=== PATIENT | male | born 1940 | race Asian ===

== ENCOUNTER 2016-10-27 08:19 | Inpatient (IN) | payer OTHER ==
[~2016-10-27] VITALS: Ht 165.1 cm; Wt 46.7 kg
[~2016-10-27 08:19] MED LIST: ANTIVERT25 MG PO; ASPIRIN81 M1 PO; LEVAQUIN500 MG PO
[2016-10-27 08:22] VITALS: BP 136/59
--- NOTE | 2016-10-27 08:33 | NUR ---
Patient ambulated to bed 7. Addendum: 10/27/16 at 0841 by MEDIVETT Patient ambulated to bed 8.
--- NOTE | 2016-10-27 08:35 | NUR ---
76/M BIB FAMILY C/O RECTAL BLEED x 3 DAYS. PT STATES HE STARTED NOTICING BRIGHT RED BLOOD ON HIS RECTUM. PT DENIES PAIN OR DISCOMFORT 0/10. AAOx4, PERRLA, BREATHING EVEN AND UNLABORED. PT STATES HE HAS Hx: HTN. BED RAILS UP; BED ON LOWEST POSITION. PATIENT POSITIONED FOR COMFORT. ERMD NOTIFIED OF PATIENT STATUS.
--- NOTE | 2016-10-27 08:36 | NUR ---
Patient being evaluated by physician at bedside.
[2016-10-27] MEDS ORDERED: PREVACID15 MG PO (08:40)
[2016-10-27] MEDS ORDERED: NORVASC5 MG PO (08:40)
[2016-10-27] MEDS ORDERED: LOPRESSOR25 MG PO (08:40)
[2016-10-27] MEDS ORDERED: LOTENSIN20 MG PO (08:40)
[2016-10-27] MEDS ORDERED: ORETIC25 MG PO (08:40)
[2016-10-27] MEDS ORDERED: NACL 0.9% 500 ML IV ONE (08:50)
--- NOTE | 2016-10-27 09:35 | NUR ---
PT RESTING; PATIENT STATES PAIN OF 0/10 AT THIS TIME; VSS; PATIENT POSITIONED FOR COMFORT; HOB ELEVATED; BEDRAILS UP X2; BED DOWN. ER MD MADE AWARE OF PT STATUS.
--- NOTE | 2016-10-27 09:35 | NUR ---
Note naina in EDM - 10/27/16 at 0936 by JETT PT RESTING. PT RESTING; PATIENT STATES PAIN OF 0/10 AT THIS TIME; VSS; PATIENT POSITIONED FOR COMFORT; HOB ELEVATED; BEDRAILS UP X2; BED DOWN. ER MADE AWARE OF PT STATUS.
--- NOTE | 2016-10-27 10:20 | NUR ---
PT TAKEN TO CT BY RADIOLGY TECH VIA WHEELCAIR.
--- NOTE | 2016-10-27 10:38 | NUR ---
PT RETURNED FROM RADIOLOGY VIA WHEELCHAIR WITH METAL NUMERICAL TOOL PROGRAMMER.
--- NOTE | 2016-10-27 11:07 | NUR ---
PT RESTING. VSS; PATIENT POSITIONED FOR COMFORT; HOB ELEVATED; BEDRAILS UP X2; BED DOWN. ER MD MADE AWARE OF PT STATUS.
--- NOTE | 2016-10-27 12:05 | NUR ---
PT RESTING. VSS; PATIENT POSITIONED FOR COMFORT; HOB ELEVATED; BEDRAILS UP X2; BED DOWN. ER MD MADE AWARE OF PT STATUS.
--- NOTE | 2016-10-27 12:31 | NUR ---
CALLED REPORT TO MED SURG/ TELE . BED ASSIGNMENT BEING CHANGED. CALL BACK IN 5 MINUTES.
--- NOTE | 2016-10-27 12:38 | NUR ---
Patient will be admitted to care of DR YANEZ. Admited to TELE. Will go to room 122A. Belongings list completed. Report to JERRY VERDE.
[2016-10-27] MEDS ORDERED: ALBUTEROL 0.083% 2.5 MG/3 ML NEBU IH PRN (13:05)
[2016-10-27] MEDS ORDERED: LORazepam 2 MG/ML VIAL IVP PRN (13:05)
[2016-10-27] MEDS ORDERED: MORPHINE SULFATE 2 MG/ML SYR IVP PRN (13:05)
[2016-10-27] MEDS ORDERED: HYDROcodone/APAP 5/325 MG 1 TAB TAB PO PRN (13:05)
[2016-10-27] MEDS ORDERED: ONDANSETRON 4 MG/2 ML VIAL IVP PRN (13:05)
[2016-10-27 13:07] VITALS: BP 157/83
--- NOTE | 2016-10-27 13:07 | NUR ---
ALERT AND ORIENTED X4, NO SIGNS OF ACUTE DISTRESS, BREATHING EVENLY AND UNLABORED ON ROOM AIR, SKIN WARM, DRY AND INTACT, ABDOMEN SOFT BOWEL SOUNDS PRESENT IN ALL 4 QUADRANTS, BOWEL AND BLADDER CONTINENCE, AMBULATORY, NO COMPLAINTS OF PAIN, IV PATENT WITH NO REDNESS, BED IN LOW POSITION WITH BILATERAL HALF SIDE RAILS UP, CALL LIGHT WITHIN REACH.
--- NOTE | 2016-10-27 13:10 | NUR ---
RECEIVED ORDER FROM DR VALLEJO TO CHANGE DIET TO CLEAR LIQUID, PUT NEW DIET IN EFFECT.
--- NOTE | 2016-10-27 13:20 | NUR ---
RECEIVED ORDER FOR SCD'S FOR VTE PROPHYLAXIS, ORDERED SCD'S.
[2016-10-27] MEDS ORDERED: PNEUMOCOCCAL VACCINE 23 MCG/0.5 ML VIAL IMVAC SCH (15:05)
[2016-10-27] MEDS: NACL 0.9% 1,000 ML IV SCH (15:28)
[2016-10-27 16:00] VITALS: BP 132/72
--- NOTE | 2016-10-27 16:05 | NUR ---
RECEIVED ORDER FROM DR ROSALES TO OBTAIN CONSENT FOR COLONOSCOPY, WILL OBTAIN CONSENT.
--- NOTE | 2016-10-27 16:30 | NUR ---
CONSENT OBTAINED FOR COLONOSCOPY.
[2016-10-27] MEDS ORDERED: SENNA 8.6 MG TAB PO SCH ×2 (16:45→21:00)
[2016-10-27] MEDS ORDERED: LACTULOSE 20 GM/30 ML UDC PO SCH (17:00)
--- NOTE | 2016-10-27 19:21 | NUR ---
ALERT AND ORIENTED X4, NO SIGNS OF ACUTE DISTRESS, BREATHING EVENLY AND UNLABORED ON ROOM AIR, SKIN WARM, DRY AND INTACT, ABDOMEN SOFT BOWEL SOUNDS PRESENT IN ALL 4 QUADRANTS, BOWEL AND BLADDER CONTINENCE, AMBULATORY, NO COMPLAINTS OF PAIN, IV PATENT WITH NO REDNESS, BED IN LOW POSITION WITH BILATERAL HALF SIDE RAILS UP, CALL LIGHT WITHIN REACH. GAVE REPORT TO ASSIGNED MANAGER ENGINE NURSERONNIE.
--- NOTE | 2016-10-27 19:25 | NUR ---
RECEIVED REPORT FROM MORNING SHIFT NURSE AT BEDSIDE, PT IS AAOX4. DENIES PAIN, NO SOB/DISTRESS NOTED, BREATHING EVEN AND UNLABORED, CLEAR LUNG SOUNDS, ON RA. DENIES ANY CHEST PAIN, ON TELE MONITOR WITH SR. SOFT ABD WITH POSITIVE BOWEL SOUNDS TO 4 QUADRANTS. AFEBRILE, SKIN INTACT, WARM AND DRY IN TOUCH. IV SITE TO LEFT AC 20GA RUNNING WITH NS. ABLE TO MOVE ALL EXTREMITIES, ABLE AMBULATORY WITH STEADY GAIT. CONTINENT WITH B&B'S. VSS. EXPLAINED PLAN OF CARE TO PATIENT, SAFETY MEASURES MAINTAINED, CALL LIGHT WITHIN REACH, WILL CONTINUE TO MONITOR.
[2016-10-27 20:00] VITALS: BP 138/72
[2016-10-27] MEDS ORDERED: MAGNESIUM CITRATE 300 ML BTL PO SCH (20:00)
--- NOTE | 2016-10-27 20:30 | NUR ---
SCHEDULED MEDICATION GIVEN, PT TOLERATED WELL.
[2016-10-28] VITALS: BP 142/72
--- NOTE | 2016-10-28 | NUR ---
NO CHANGE OF CONDITION AT THIS TIME, PT HAD BOWEL MOVEMENT SEVERAL TIMES, SMALL AMOUNT OF BLOOD NOTED. VSS.
[2016-10-28] MEDS: NACL 0.9% 1,000 ML IV SCH (03:30)
[2016-10-28 04:00] VITALS: BP 134/73
--- NOTE | 2016-10-28 04:00 | NUR ---
NO CHANGE OF CONDITION AT THIS TIME, VSS.
[2016-10-28] MEDS ORDERED: BOWEL EVACUANT DRINK 4,000 ML PDS PO SCH (06:00)
--- NOTE | 2016-10-28 07:10 | NUR ---
REPORT GIVEN TO MORNING SHIFT NURSE FOR CONTINUE OF CARE, PT IS IN STABLE CONDITION AT THIS TIME.
--- NOTE | 2016-10-28 07:11 | NUR ---
ALERT AND ORIENTED X4, NO SIGNS OF ACUTE DISTRESS, BREATHING EVEN AND UNLABORED BILATERALLY, ABDOMEN SOFT WITH BOWEL SOUNDS PRESENT IN ALL 4 QUADRANTS, SKIN WARM, DRY AND INTACT, BOWEL AND BLADDER CONTINENCE, AMBULATES INDEPENDENTLY, NO COMPLAINTS OF PAIN, BED IN LOW POSITION WITH BILATERAL HALF SIDE RAILS UP, CALL LIGHT WITHIN REACH.
[2016-10-28 07:57] VITALS: BP 140/78
--- NOTE | 2016-10-28 08:01 | NUR ---
PATIENT HAS BEEN SCREENED AND CATEGORIZED HIGH NUTRITION RISK. PATIENT WILL BE SEEN WITHIN 1-2 DAYS OF ADMISSION. 10/28/16-10/29/[address]
[2016-10-28] MEDS ORDERED: amLODIPine 5 MG TAB PO SCH (09:00)
[2016-10-28] MEDS ORDERED: BENAZEPRIL 10 MG TAB PO SCH (09:00)
[2016-10-28] MEDS ORDERED: METOPROLOL SUCCINATE 50 MG TABER PO SCH (09:00)
--- NOTE | 2016-10-28 09:43 | NUR ---
WAS SEEN BY DR VALLEJO, ORDERED LABS AND CLARIFIED PT ORDERS.
--- NOTE | 2016-10-28 09:50 | NUR ---
PER MD YANEZ D/C PT, PATIENT INDEPENDENT WITH ADL'S.
[2016-10-28 12:00] VITALS: BP 126/72
--- NOTE | 2016-10-28 12:00 | NUR ---
PT AWAKE ALERT AND ORIENTED, NO SIGNS OF ACUTE DISTRESS. WENT OFF UNIT TO OR FOR COLONOSCOPY. PRE OP CHECKLIST DONE AND VERIFIED.
[2016-10-28] MEDS: MIDAZOLAM 2 MG/2 ML VIAL ONE ×2 (12:15→12:19)
[2016-10-28] MEDS: fentaNYL 0.05 MG/ML VIAL ONE ×2 (12:16→12:19)
[2016-10-28] MEDS ORDERED: diphenhydrAMINE 50 MG/ML VIAL ONE (12:19)
[2016-10-28 12:55] VITALS: BP 114/68
--- NOTE | 2016-10-28 12:55 | NUR ---
PATIENT BACK FROM OR, RECEIVED REPORT FROM MANDY RN, PT. AWAKE, ALERT AND ORIENTED X4 S/P COLONOSCOPY, NO SIGNS OF ACUTE DISTRESS, NO EPISODES OF NAUSEA OR VOMITING. PER REPORT, PATIENT HAD RECTAL POLYP REMOVED AND TOLERATED PROCEDURE WELL.
--- NOTE | 2016-10-28 13:37 | NUR ---
RECEIVED CALL FROM SELIN FROM [facility]. SAID TO FAX REVIEW TO HIM. FAXED INITIAL REVIEW TO [phone] PHONE SELIN [phone] OR DENISA Emerson [phone]
--- NOTE | 2016-10-28 14:26 | NUR ---
RECEIVED NEW ORDER FROM DR ROSALES AND RENATA, OK TO D/C HOME TODAY, WILL CARRY OUT.
--- NOTE | 2016-10-28 14:55 | NUR ---
10/28/16 RD INITIAL ASSESSMENT COMPLETED PLEASE REFER TO NUTRITION ASSESSMENT UNDER CARE ACTIVITY FOR ESTIMATED NUTRITIONAL NEEDS. RD RECOMMENDATIONS: WHEN MEDICALLY APPROPRIATE CONSIDER ADVANCING DIET TO REGULAR TOLERATED. ENCOURAGE INCREASED PO INTAKE. RD WILL F/U 3-5 DAYS; MODERATE RISK. KIKO KAPOOR, DEMETRIUS
--- NOTE | 2016-10-28 15:19 | NUR ---
PT. AWAKE, ALERT AND ORIENTED X4, NO SIGNS OF ACUTE DISTRESS, DISCONTINUED IV AND TELE MONITOR. INFORMED TO CONTINUE ALL HOME MEDICATIONS AND TO FOLLOW UP WITH PCP WITHIN 1 TO 2 WEEKS ADVISED PER MD, PATIENT VERBALIZED UNDERSTANDING. NO COMPLAINT OF PAIN OR NAUSEA. PATIENT TO LEAVE WITH FAMILY VIA PRIVATE AUTO. WHEELED PATIENT TO FRONT OF HOSPITAL.
== END 2016-10-28 15:19 | disposition home or self-care (01) | DRG 394 ==
LOC: MED 08:19 → MTU 12:18
PROVIDERS: ADMIT Hospitalist; ATTEND Hospitalist
PROC: 0DBP8ZZ Excision of Rectum, Via Natural or Artificial Opening Endoscopic (ICD-10-PCS; principal; 2016-10-28 12:00)
DX: K62.1 Rectal polyp (principal); R64 Cachexia; Z68.1 Body mass index [BMI] 19.9 or less, adult; I10 Essential (primary) hypertension; K59.00 Constipation, unspecified; Z79.82 Long term (current) use of aspirin; Z79.899 Other long term (current) drug therapy; Z86.73 Personal history of transient ischemic attack (TIA), and cerebral infarction without residual deficits

== ENCOUNTER 2017-01-24 11:17 | Emergency (ER) | payer OTHER ==
[~2017-01-24] VITALS: Ht 163.8 cm; Wt 48.3 kg
[~2017-01-24 11:17] MED LIST changes: +AMLO5TAB PO; -ANTIVERT25 MG PO; +ASPI81CT89 PO; -ASPIRIN81 M1 PO; +BENA20TA PO; +LANS15EC28 PO; -LEVAQUIN500 MG PO; +METO25TA PO; +ORE25 PO
[2017-01-24 11:53] VITALS: BP 111/64
[2017-01-24] MEDS ORDERED: NACL 0.9% 1,000 ML IV SCH (12:16)
[2017-01-24] MEDS ORDERED: ONDANSETRON 4 MG/2 ML VIAL IVP ONE (12:20)
[2017-01-24 12:38] LABS: BASOPHILS # (AUTO) 0.1 K/uL (0.00-0.22); BASOPHILS % (AUTO) 1.6 % (0.0-2.0); EOSINOPHILS # (AUTO) 0.1 K/uL (0-0.4); EOSINOPHILS % (AUTO) 1.2 % (0.0-4.0); HEMATOCRIT 40.5 % (36-52); HEMOGLOBIN 13.4 g/dL (12.0-18.0); LYMPHOCYTES # (AUTO) 0.9 K/uL (2.0-11.5); LYMPHOCYTES % (AUTO) 13.3 % (20.5-51.1); MEAN CORPUSCULAR HEMOGLOBIN 31 pg (27-31); MEAN CORPUSCULAR HGB CONC 33 g/dL (33-37); MEAN CORPUSCULAR VOLUME 93 fL (80-94); MONOCYTES # (AUTO) 0.3 K/uL (0.8-1.0); MONOCYTES % (AUTO) 4.7 % (1.7-9.3); NEUTROPHILS # (AUTO) 5.7 K/uL (1.8-7.7); NEUTROPHILS % (AUTO) 79.2 % (42.2-75.2); PLATELET COUNT (AUTO) 288 K/uL (140-450); RED BLOOD CELL COUNT(AUTO) 4.35 MIL/uL (4.20-6.10); RED CELL DISTRIBUTION WIDTH 13.3 % (11.6-13.7); WHITE BLOOD COUNT (AUTO) 7.1 K/uL (4.8-10.8)
[2017-01-24 12:56] LABS: ANION GAP 12.3 (8-16); CALCIUM 8.4 mg/dL (8.5-10.1); CARBON DIOXIDE 25.7 mmol/L (21-32); CHLORIDE 103 mmol/L (98-107); CREATININE 1.3 mg/dL (0.7-1.3); GLUCOSE 137 mg/dL (74-106); SODIUM SERUM 137 mmol/L (136-145); UREA NITROGEN, BLOOD 26 mg/dL (7-18)
[2017-01-24 12:58] LABS: PARTIAL THROMBOPLASTIN TIME 25.9 secs (22-35.6); PROTHROMBIN TIME 10.4 secs (10.8-13.4)
[2017-01-24 13:02] LABS: ALANINE AMINOTRANSFERASE 21 U/L (16-63); ALBUMIN 3.8 g/dL (3.4-5.0); ALKALINE PHOSPHATASE 100 U/L (46-116); AMYLASE 89 U/L (25-115); ASPARTATE AMINOTRANSFERASE 27 U/L (15-37); LIPASE 146 U/L (73-393); TOTAL BILIRUBIN 0.6 mg/dL (0.0-1.0); TOTAL PROTEIN, SERUM 8.5 g/dL (6.4-8.2)
--- NOTE | 2017-01-24 13:57 | NUR ---
Patient returned to ED lobby after completion of XRAY.
--- NOTE | 2017-01-24 14:56 | NUR ---
Patient ambulated to bed 4 with family. RN evaluating patient at bedside.
--- NOTE | 2017-01-24 14:58 | NUR ---
76M BIB FAMILY C/O HEADACHE WITH NAUSEA X 3 DAYS, WORSENED THIS MORNING; PT STATES " I WENT TO THE BATHROOM THIS MORNING AND FELT DIZZY WITH NAUSEA";PT DENIES TRAUMA OR INJURY TO HEAD AT THIS TIME. HX: HTN, HYPERLIPIDEMIA. SKIN IS PINK/WARM/DRY; AAOX4 WITH EVEN AND STEADY GAIT; LUNGS CLEAR BL; HR EVEN AND REGULAR; PT DENIES ANY FEVER, CP, SOB, OR COUGH AT THIS TIME; PATIENT STATES PAIN OF 5/10 AT THIS TIME; VSS; PATIENT POSITIONED FOR COMFORT; HOB ELEVATED; BEDRAILS UP X2; BED DOWN. ER MD MADE AWARE OF PT STATUS.
--- NOTE | 2017-01-24 15:03 | NUR ---
INSERTED IV CATH NO20 G LAC BY JERRY MASON. PT TOLERATED PROCEDURE WELL, IV PATENT/INTACT. Addendum: 01/24/17 at 1654 by MED1 FAMILY AT BEDSIDE.
[2017-01-24] MEDS ORDERED: ONDANSETRON 4 MG/2 ML VIAL ONE (15:15)
--- NOTE | 2017-01-24 15:37 | NUR ---
PT TAKEN TO X RAY.
--- NOTE | 2017-01-24 15:45 | NUR ---
BACK FROM X RAY
[2017-01-24 16:03] LABS: APPEARANCE,URINE CLEAR (CLEAR); BILIRUBIN,URINE NEGATIVE (NEGATIVE); BLOOD, URINE TRACE-I (NEGATIVE); COLOR,URINE YELLOW (YELLOW); LEUKOCYTE ESTERASE ,URINE NEGATIVE (NEGATIVE); NITRITE, URINE NEGATIVE (NEGATIVE); PH,URINE 6.5 (5.0-9.0); PROTEIN,URINE NEGATIVE (NEGATIVE); UGLUCOSE NEGATIVE (NEGATIVE); UROBILINOGEN,URINE 0.2 EU/dL (0.2 - 1)
[2017-01-24 16:04] LABS: AMYLASE 89 U/L (25-115); LIPASE 147 U/L (73-393)
--- NOTE | 2017-01-24 16:05 | NUR ---
EKG AT BEDSIDE
[2017-01-24 16:14] LABS: BACTERIA,URINE RARE /HPF (None Seen); MUCUS,URINE 1+ /LPF (None Seen); SQUAMOUS EPITHELIAL CELL,UR 0-3 /LPF (0-3 (FEW)); WBC,URINE 0-3 /HPF (0-5)
--- NOTE | 2017-01-24 16:41 | NUR ---
Patient appears to be resting comfortably in bed. Vital Signs within normal limits. Respirations even and unlabored.WILL CONTINUE TO MONITOR.
--- NOTE | 2017-01-24 16:54 | NUR ---
ER MD DR HERNANDEZ REEVALUATING PT AT BEDSIDE.
[2017-01-24 17:22] VITALS: BP 137/64
--- NOTE | 2017-01-24 17:22 | NUR ---
Patient discharged with BP137/64 ; HEADACHE 09/19; MD AWARE . Written and verbal after care instructions given and explained. Patient alert, oriented and verbalized understanding of instructions. Ambulatory with steady gait. All questions addressed prior to discharge. ID band removed. Patient advised to follow up with PMD. Rx of TYLENOL & ANTIVERT given. Patient educated on indication of medication including possible reaction and side effects. Opportunity to ask questions provided and answered.
== END 2017-01-24 17:22 | disposition home or self-care (01) ==
LOC: MED 11:17
DX: G44.209 Tension-type headache, unspecified, not intractable (principal); J45.909 Unspecified asthma, uncomplicated; I10 Essential (primary) hypertension; Z86.73 Personal history of transient ischemic attack (TIA), and cerebral infarction without residual deficits
CPT/HCPCS: 36415; 70450; 71010; 80053; 81001; 82150; 82553; 83690; 83880; 84484; 84703; 85025; 85610; 85730; 93005; 96361; 96374; 99285; J2405; J7030

== ENCOUNTER 2017-10-23 07:53 | Emergency (ER) | payer OTHER ==
[~2017-10-23] VITALS: Ht 157.5 cm; Wt 51.4 kg
[2017-10-23 07:58] VITALS: BP 156/76
--- NOTE | 2017-10-23 08:44 | NUR ---
PATIENT PRESENTS TO ED WITH RIGHT ANTERIOR FOOT SWELLING/REDNESS X 2 DAYS--DENIES INJURY DENIES N/V/D; SKIN IS PINK/WARM/DRY; AAOX4 WITH EVEN AND STEADY GAIT; LUNGS CLEAR BL; HR EVEN AND REGULAR; PT DENIES ANY FEVER, CP, SOB, OR COUGH AT THIS TIME; PATIENT STATES PAIN OF 6/10 AT THIS TIME; VSS; PATIENT POSITIONED FOR COMFORT; HOB ELEVATED; BEDRAILS UP X2; BED DOWN. ER MD MADE AWARE OF PT STATUS.
[2017-10-23 09:06] VITALS: BP 177/75
--- NOTE | 2017-10-23 09:06 | NUR ---
Patient discharged with v/s stable. Written and verbal after care instructions given and explained. Patient alert, oriented and verbalized understanding of instructions. Ambulatory with steady gait. All questions addressed prior to discharge. ID band removed. Patient advised to follow up with PMD. Rx of Keflex, Bactrim, and Motrin given. Patient educated on indication of medication including possible reaction and side effects. Opportunity to ask questions provided and answered.
== END 2017-10-23 09:06 | disposition home or self-care (01) ==
LOC: MED 07:53
DX: L03.115 Cellulitis of right lower limb (principal); J45.909 Unspecified asthma, uncomplicated; I10 Essential (primary) hypertension; Z86.73 Personal history of transient ischemic attack (TIA), and cerebral infarction without residual deficits
CPT/HCPCS: 81002; 99283

== ENCOUNTER 2018-09-01 23:30 | Emergency (ER) | payer OTHER ==
[~2018-09-01] VITALS: Ht 165.1 cm; Wt 62.1 kg
[~2018-09-01 23:30] MED LIST changes: +ASPI-1718 PO; -ASPI81CT89 PO
--- NOTE | 2018-09-01 23:30 | NUR ---
Pt transfered from [facility] to bed 11 with vss.
[2018-09-01 23:40] VITALS: BP 117/72
--- NOTE | 2018-09-01 23:52 | NUR ---
PATIENT PRESENTS TO ED WITH possible mechanical fall. family states that pt was more tired than usual. DENIES N/V/D; SKIN IS PINK/WARM/DRY; AAOX4 WITH EVEN AND STEADY GAIT; LUNGS CLEAR BL; HR EVEN AND REGULAR; PT DENIES ANY FEVER, CP, SOB, OR COUGH AT THIS TIME; PATIENT STATES PAIN OF 0/10 AT THIS TIME; VSS; PATIENT POSITIONED FOR COMFORT; HOB ELEVATED; BEDRAILS UP X2; BED DOWN. ER MD MADE AWARE OF PT STATUS.
[2018-09-01] MEDS ORDERED: TAMS0.4C96 PO (23:57)
[2018-09-02] MEDS ORDERED: DOCU-299 PO
[2018-09-02] MEDS ORDERED: MECL-272 PO
[2018-09-02] MEDS ORDERED: BENA20TA PO (00:01)
--- NOTE | 2018-09-02 00:01 | NUR ---
EKG PERFORMED AT BEDSIDE WITH RN PRESENT. PT COVERED IN GOWN AND BLANKET DURING PROCEDURE.
[2018-09-02] MEDS ORDERED: ASPI-1677 PO (00:02)
[2018-09-02] MEDS ORDERED: ISOS10TA9 PO (00:02)
[2018-09-02 00:09] LABS: BASOPHILS % (AUTO) 0.3 % (0.0-2.0); EOSINOPHILS # (AUTO) 0.3 K/uL (0-0.4); EOSINOPHILS % (AUTO) 3.7 % (0.0-4.0); HEMATOCRIT 35.4 % (36-52); HEMOGLOBIN 11.6 g/dL (12.0-18.0); LYMPHOCYTES # (AUTO) 1.6 K/uL (2.0-11.5); LYMPHOCYTES % (AUTO) 21.7 % (20.5-51.1); MEAN CORPUSCULAR HEMOGLOBIN 31 pg (27-31); MEAN CORPUSCULAR HGB CONC 33 g/dL (33-37); MEAN CORPUSCULAR VOLUME 93.7 fL (80-94); MONOCYTES # (AUTO) 0.6 K/uL (0.8-1.0); NEUTROPHILS # (AUTO) 4.8 K/uL (1.8-7.7); NEUTROPHILS % (AUTO) 66.3 % (42.2-75.2); PLATELET COUNT (AUTO) 327 K/uL (140-450); RED BLOOD CELL COUNT(AUTO) 3.78 MIL/uL (4.20-6.10); RED CELL DISTRIBUTION WIDTH 13.1 % (11.6-13.7); WHITE BLOOD COUNT (AUTO) 7.3 K/uL (4.8-10.8)
[2018-09-02 00:20] LABS: ANION GAP 11.6 (8-16); CARBON DIOXIDE 27.7 mmol/L (21-32); CHLORIDE 107 mmol/L (98-107); CREATININE 1.3 mg/dL (0.7-1.3); GLUCOSE 125 mg/dL (74-106); POTASSIUM 3.3 mmol/L (3.5-5.1); SODIUM SERUM 143 mmol/L (136-145); UREA NITROGEN, BLOOD 24 mg/dL (7-18)
[2018-09-02 00:27] LABS: ALBUMIN 3.3 g/dL (3.4-5.0); ASPARTATE AMINOTRANSFERASE 26 U/L (15-37); LIPASE 278 U/L (73-393); TOTAL BILIRUBIN 0.3 mg/dL (0.0-1.0)
[2018-09-02 00:33] LABS: CREATINE KINASE MB 2.5 ng/mL (0-3.6)
[2018-09-02 01:15] LABS: APPEARANCE,URINE CLEAR (CLEAR); BILIRUBIN,URINE NEGATIVE (NEGATIVE); BLOOD, URINE 1+ (NEGATIVE); COLOR,URINE YELLOW (YELLOW); LEUKOCYTE ESTERASE ,URINE NEGATIVE (NEGATIVE); NITRITE, URINE NEGATIVE (NEGATIVE); PH,URINE 6.5 (5.0-9.0); UGLUCOSE NEGATIVE (NEGATIVE)
[2018-09-02 01:26] LABS: RBC,URINE 3-10 (FEW) /HPF (0-5); WBC,URINE 0-5 (RARE) /HPF (0-5)
[2018-09-02 01:58] VITALS: BP 110/59
--- NOTE | 2018-09-02 01:58 | NUR ---
Patient discharged with v/s stable. Written and verbal after care instructions given and explained. Patient verbalized understanding. Assissted to car in w/c. All questions addressed prior to discharge. Advised to follow up with PMD.
== END 2018-09-02 01:58 | disposition home or self-care (01) ==
LOC: MED 23:30
DX: R53.1 Weakness (principal); R42 Dizziness and giddiness; J45.909 Unspecified asthma, uncomplicated; I10 Essential (primary) hypertension; Z79.82 Long term (current) use of aspirin; Z86.73 Personal history of transient ischemic attack (TIA), and cerebral infarction without residual deficits; Z79.899 Other long term (current) drug therapy; W19.XXXA Unspecified fall, initial encounter
CPT/HCPCS: 36415; 70450; 71045; 80053; 81001; 82550; 82553; 83690; 84484; 85025; 93005; 99284